=== PATIENT | male | born 1990 | race Hispanic/Latino ===

== ENCOUNTER 2017-12-02 08:05 | Emergency (ER) | payer MEDICAID, OTHER ==
[2017-12-02 08:06] VITALS: BMI 21.1
[2017-12-02 08:31] VITALS: BP 126/77
[2017-12-02] MEDS ORDERED: guaiFENesin DM 200 mg-20 mg/10 ml UD PO ONE (08:42)
--- NOTE | 2017-12-02 08:49 | ED PDOC ---
Arrival/HPI - General Chief Complaint: Cough, Cold, Congestion Time Seen by Provider: 12/02/17 08:35 Historian: Patient - History of Present Illness Narrative History of Present Illness (Text): 12/02/17 08:40 pt p/w + 10 days of initially dry coughing that became productive over the last few days, + 3 episodes of vomiting yesterday, associated with coughing; pt denied any bleeding; pt states ? 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 pt is here for further eval PCP: NONE Time/Duration: > week (10 days) Symptom Onset: Sudden Symptom Course: Unchanged Activities at Onset: Rest Context: Home Past Medical History - Provider Review Nursing Documentation Reviewed: Yes - Travel History Have you recently traveled outside [place] w/in the past 3 mons?: No - Past History Past History: No Previous - Infectious Disease Hx of Infectious Diseases: None - Reproductive Currently Lactating: No - Psychiatric Hx Substance Use: Yes (marijuana) - Anesthesia Hx Anesthesia: No Family/Social History - Physician Review Nursing Documentation Reviewed: Yes Family/Social History: No Known Family HX Smoking Status: Light Smoker < 10 Cigarettes Daily Hx Alcohol Use: Yes Frequency of alcohol use: Socially Hx Substance Use: Yes (marijuana) Hx Substance Use Treatment: No Allergies/Home Meds Allergies/Adverse Reactions: Allergies No Known Allergies Allergy (Verified 12/02/17 08:33) Review of Systems - Review of Systems Constitutional: Normal Eyes: Normal ENT: Normal. absent: Sore Throat Respiratory: Cough. absent: Sputum, Wheezing Cardiovascular: Normal. absent: Chest Pain Gastrointestinal: Normal. absent: Nausea, Vomiting Genitourinary Male: Normal Musculoskeletal: Normal Skin: Normal Neurological: Normal. absent: Headache, Dizziness Endocrine: Normal Hemo/Lymphatic: Normal Psychiatric: Normal Physical Exam - Physical Exam Narrative Physical Exam (Text): 12/02/17 0830 General: alert/awake, GCS = 15, oriented x 3, resting in bed, uncomfortable, cooperative, interactive Head: NC/AT Eye: PERRLA, EOMI, sclera anicteric, no nystagmus, no photophobia Face: WNL ORAL: intact dentitions, no drooling/stridor, no dysphonia, no exudate/lesions NECK: intact ROM, no midline tenderness, no nuchal rigidity, no meningeal signs ; no step off Chest: no focal tenderness, no crepitus, no lesions, no gross deformities Lung: CTA b/l, no w/r/r; no tachypenia, no accessory muscle use noted Card: +S1, +S2, no m/r/r ABD: +BS, soft/nd/nt, well nourished patient; no curran's sign, no mcburney's point tenderness, no masses/rebound/guarding/rigidity Ext: intact ROM, strength 5/5 grossly intact in all limbs, neurovasc intact b/l SKIN: cap refill < 1 sec, no ulcerations, no petechiae, no rashes NEURO: CNII-XII WNL, no facial asymmetries, no slurr speech, oriented x 3 Psych: normal insight, cooperative, normal concentration Vital Signs Reviewed: Yes Vital Signs Temp Pulse Resp BP Pulse Ox 12/02/17 10:18 98.0 F 85 19 99 12/02/17 10:17 98.0 F 85 19 98 12/02/17 08:27 97.7 F 81 18 126/77 100 Temperature: Afebrile Blood Pressure: Normal Pulse: Regular Respiratory Rate: Normal Appearance: Positive for: Well-Appearing, Non-Toxic Pain Distress: None Mental Status: Positive for: Alert and Oriented X 3 - Systems Exam Head: Present: Atraumatic, Normocephalic Medical Decision Making ED Course and Treatment: 12/02/17 08:40 Impression: coughing/vomiting i have consider all the differential diagnosis regarding pt's chief medical complaints/clinical findings, including but are not limited to: coughing/ vomiting A/P: coughing/vomiting - xray - supportive care - observe/reevaluation 12/02/17 10:11 pt is doing well pt is not in any distress pt states the medications are helping somewhat with his coughing pt is made aware of his medical results pt is encouraged smoking cessation pt will follow up as directed pt will be discharged home Re-evaluation Time: 10:11 Reassessment Condition: Improving,but remains with symptoms - RAD Interpretation Narrative RAD Interpretations (Text): 12/02/17 10:11 HISTORY: cough COMPARISON: No prior. TECHNIQUE: Chest PA and lateral FINDINGS: LUNGS: No active pulmonary disease. PLEURA: No significant pleural effusion identified. No pneumothorax apparent. CARDIOVASCULAR: Normal. OSSEOUS STRUCTURES: No significant abnormalities. VISUALIZED UPPER ABDOMEN: Normal. OTHER FINDINGS: None. IMPRESSION: No active disease. Radiology Orders: 12/02/17 08:42 CHEST TWO VIEWS (PA/LAT) [RAD] Stat Picture Frames Inspector: Radiologist - Medication Orders Current Medication Orders: Discontinued Medications Guaifenesin/Dextromethorphan (Robitussin Dm) 10 ml PO ONCE ONE Stop: 12/02/17 08:43 Last Admin: 12/02/17 08:49 Dose: 10 ml Ondansetron HCl (Zofran Odt) 4 mg PO STAT STA Stop: 12/02/17 08:43 Last Admin: 12/02/17 08:49 Dose: 4 mg Disposition/Present on Arrival - Present on Arrival Any Indicators Present on Arrival: No History of DVT/PE: No History of Uncontrolled Diabetes: No Urinary Catheter: No History of Decub. Ulcer: No History Surgical Site Infection Following: None - Disposition Have Diagnosis and Disposition been Completed?: Yes Diagnosis: Cough Disposition: HOME/ ROUTINE Disposition Time: 10:08 Patient Plan: Discharge Condition: STABLE Discharge Instructions (ExitCare): Cough in Adults, Viral Upper Respiratory Infection, Adult (DC) Print Language: [place] Additional Instructions: Make sure to see your doctor in 1-2 days DRINK PLENTY OF FLUIDS take your medications as prescribed STOP SMOKING try 1 teaspoon of honey every 8hours for cough control RETURN TO ED IF worse pain, cant breath, persistent vomiting, high fever >101- 102 for hours, altered behavior, slurr speech, facial changes, focal weakness ( arm/leg or both), unable to urinate, heavy/persistent bleeding, passing out, chest pain, or other medical emergencies Prescriptions: guaiFENesin/Dextromethorphan [guaiFENesin-DM] 10 ml PO QID PRN #100 ml PRN Reason: Cough Ondansetron ODT [Zofran ODT] 4 mg PO TID PRN #10 odt PRN Reason: Nausea/Vomiting Referrals: [facility] [Outside] - Follow up with primary [facility] [Outside] - Follow up with primary [facility] [Outside] - Follow up with primary Forms: [employer] ([place]), WORK NOTE
--- NOTE | 2017-12-02 09:55 | RAD ---
HISTORY: cough COMPARISON: No prior. TECHNIQUE: Chest PA and lateral FINDINGS: LUNGS: No active pulmonary disease. PLEURA: No significant pleural effusion identified. No pneumothorax apparent. CARDIOVASCULAR: Normal. OSSEOUS STRUCTURES: No significant abnormalities. VISUALIZED UPPER ABDOMEN: Normal. OTHER FINDINGS: None. IMPRESSION: No active disease.
[2017-12-02 10:18] VITALS: PULSE 85; RESP 19; TEMP 98
[2017-12-02 10:19] VITALS: O2SAT 99
== END 2017-12-02 10:19 | disposition home or self-care (01) ==
LOC: ED 08:05
DX: R05 Cough (principal)